=== PATIENT | male | born 1950 | race Caucasian/White ===

== ENCOUNTER 2024-08-20 09:30 | Inpatient (IN) | payer OTHER ==
[~2024-08-20] VITALS: Ht 177.8 cm; Wt 88.5 kg
[~2024-08-20 09:30] MED LIST: ALLOPURINOL300 MG PO; CARVEDILOL25 MG PO; CRESTOR10 MG PO; DICY20TA PO; DOXAZOSIN MESYLA2 MG PO; IRBESARTAN-HCT1 EAC1 PO; KOMBIGLYZE XR1 EAC2 PO; LOTREL 5-10 MG1 CAP PO; NABUMETONE750 MG PO; PARAFON FORTE500 MG PO; PROTONIX40 MG PO
[2024-08-20 11:35] LABS: HEMATOCRIT 44.2 % (39.0-48.0); HEMOGLOBIN 15.3 g/dL (13-16.00); MEAN CORPUSCULAR HEMOGLOBIN 32.2 pg (27.00-32.0); MEAN CORPUSCULAR HGB CONC 34.6 g/dl (32.0-36.0); PLATELET COUNT 183 K/uL (150-450); RED BLOOD COUNT 4.75 M/uL (4.00-6.00); RED CELL DISTRIBUTION WIDTH 13.1 % (11.5-14.5)
[2024-08-20 11:40] LABS: URINE APPEARANCE Clear; URINE BILIRRUBIN Negative (NEGATIVE); URINE BLOOD Negative; URINE COLOR Yellow; URINE GLUCOSE Negative (NEGATIVE); URINE KETONE Negative (NEGATIVE); URINE LEUKOCYTE Negative; URINE NITRATE Negative; URINE PROTEIN Negative (NEGATIVE); URINE UROBILINOGEN 0.2 E.U./dl
[2024-08-20 11:44] LABS: INR 1.05; PARTIAL THROMBOPLASTIN TIME 27.4 SECONDS (22.0-34.0); PROTHROMBIN TIME 11.4 SECONDS (9.0-11.5)
[2024-08-20 11:45] LABS: URINE EPITHELIAL CELLS 1.8 uL (0.0-38.8); URINE WBC 3.4 uL (0.0-23.2)
[2024-08-20 11:52] LABS: ALBUMIN 3.8 gm/dL (3.4-5.0); BILIRUBIN TOTAL 1.05 mg/dL (0.3-1.2); CALCIUM 9.4 mg/dL (8.5-10.1); CREATININE SERUM 1.12 mg/dL (0.70-1.30); GFR 64.45; GLOBULINA 3.2 G/DL (2.4-3.5); POTASSIUM 3.73 mEq/L (3.5-5.1)
[2024-08-20 12:16] LABS: URINE BACTERIA 3.6 uL (0.0-1933); URINE CAST 0.14 uL (0.0-1.40); URINE RBC 1.4 uL (0.0-20.8)
[2024-08-20] MEDS ORDERED: LOTREL 10-20 M1 EACH PO (13:29)
[2024-08-20 13:54] VITALS: BP 180/90
[2024-09-17] MEDS ORDERED: ONDANSETRON HCL 2 MG/ML VIAL IV PRN (11:15)
[2024-09-17] MEDS ORDERED: OxyCODONE HCL/APAP UD (PERCOCET) PO PRN (11:15)
[2024-09-17] MEDS ORDERED: MORPHINE SULFATE 4 MG/ML CARTRIDGE IV SCH (12:00)
[2024-09-17] MEDS ORDERED: CEFAZOLIN SODIUM 1,000 MG VIAL IV SCH (12:00)
[2024-09-17] MEDS ORDERED: BUPIVACAINE HCL/MPF 0.5% 30ML VIAL ONE (12:43)
[2024-09-17] MEDS ORDERED: KETOROLAC TROMETHAMINE 60 MG VIAL IM ONE (12:43)
[2024-09-17] MEDS ORDERED: VANCOMYCIN HCL 1,000 MG VIAL ONE (12:44)
[2024-09-17] MEDS ORDERED: CEFAZOLIN SODIUM 1,000 MG VIAL ONE ×2 (12:44→17:35)
[2024-09-17] MEDS ORDERED: TRANEXAMIC ACID 100MG/1ML (1000MG) AMPUL IV ONE (12:44)
[2024-09-17] MEDS ORDERED: ISOPROPYL ALCOHOL 30 ML OUNCE TOP ONE (12:44)
[2024-09-17] MEDS ORDERED: LIDOCAINE HCL 1%/EPINEPHRINE 20ML VIAL IJ ONE (12:44)
[2024-09-17] MEDS ORDERED: hydrALAZINE HCL 20 MG VIAL IV PRN (15:30)
[2024-09-17] MEDS ORDERED: INSULIN LISPRO 1,000 UNIT/10 ML UNITS SUBCUTANEO PRN (15:30)
[2024-09-17] MEDS ORDERED: ENALAPRILAT DIHYDRATE 2.5 MG/2 ML VIAL IV PRN (15:30)
[2024-09-17] MEDS ORDERED: DEXTROSE 50 % IN WATER 0.5 G/ML VIAL IV PRN (15:30)
[2024-09-17 18:26] VITALS: BP 190/70; O2SAT 100
[2024-09-17] MEDS ORDERED: ORPHENADRINE CITRATE 100 MG TABLET PO SCH (21:00)
[2024-09-17] MEDS ORDERED: GABAPENTIN 100 MG CAPSULE PO SCH (21:00)
[2024-09-18 06:29] LABS: HEMATOCRIT 38.2 % (39.0-48.0); HEMOGLOBIN 13.2 g/dL (13-16.00); MEAN CELL VOLUME 92.8 fL (80.0-100.00); MEAN CORPUSCULAR HEMOGLOBIN 32.1 pg (27.00-32.0); MEAN CORPUSCULAR HGB CONC 34.6 g/dl (32.0-36.0); PLATELET COUNT 188 K/uL (150-450); RED BLOOD COUNT 4.12 M/uL (4.00-6.00)
[2024-09-18 08:00] VITALS: BP 106/61; O2SAT 96
[2024-09-18] MEDS ORDERED: APIXABAN 2.5 MG TABLET PO SCH (09:00)
[2024-09-18 16:00] VITALS: BP 127/66; O2SAT 98
[2024-09-18] MEDS ORDERED: IRON FUM,PS/FOLIC ACID/VITC/B3 1 CAP CAPSULE PO SCH (17:00)
[2024-09-18] MEDS ORDERED: Cyanocobalamin/Mecobalamin 1 TAB.SL SL SCH (17:00)
[2024-09-18] MEDS ORDERED: VITAMIN B COMPLEX 1 EACH PO SCH (17:00)
[2024-09-19] VITALS: BP 151/78; O2SAT 95
[2024-09-19 06:49] LABS: HEMOGLOBIN 12.7 g/dL (13-16.00); MEAN CELL VOLUME 92.3 fL (80.0-100.00); MEAN CORPUSCULAR HEMOGLOBIN 31.8 pg (27.00-32.0); MEAN CORPUSCULAR HGB CONC 34.4 g/dl (32.0-36.0); PLATELET COUNT 168 K/uL (150-450); RED BLOOD COUNT 4.01 M/uL (4.00-6.00); RED CELL DISTRIBUTION WIDTH 13.3 % (11.5-14.5)
[2024-09-19 08:19] VITALS: BP 145/72; O2SAT 96
[2024-09-19 19:51] VITALS: BP 150/80
[2024-09-19] MEDS ORDERED: hydrOXYzine HCL 25 MG TABLET PO SCH (22:12)
[2024-09-19] MEDS ORDERED: DOXAZOSIN MESYLATE 2 MG TABLET PO SCH (22:13)
[2024-09-20 00:47] VITALS: BP 132/76; O2SAT 96
== END 2024-09-20 14:51 | DRG 470 ==
LOC: SURG 08-27 09:30 → O/R 09-17 08:44 → SURG 09-17 09:30 → SURH 09-17 15:41
PROVIDERS: ADMIT Orthopaedic Surgery; ATTEND Orthopaedic Surgery
PROC: 0SRD0JZ Replacement of Left Knee Joint with Synthetic Substitute, Open Approach (ICD-10-PCS; principal; 2024-09-17 15:15)
DX: M17.12 Unilateral primary osteoarthritis, left knee (principal); D62 Acute posthemorrhagic anemia; M85.662 Other cyst of bone, left lower leg; I10 Essential (primary) hypertension